=== PATIENT | male | born 1995 | race Two or more races ===

== ENCOUNTER 2017-05-14 10:14 | Emergency (ER) | payer SELFPAY ==
[~2017-05-14] VITALS: Ht 180.3 cm; Wt 68.0 kg
[2017-05-14 10:37] VITALS: BP 151/90
[2017-05-14] MEDS ORDERED: Lidocaine 1% 10mg/ml/EPI 0.01mg/ml 50ml INJ ONE (10:45)
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
[2017-05-14] MEDS ORDERED: Hydrogen Peroxide 473ml Bottle TOPIC ONE (10:57)
--- NOTE | 2017-05-14 11:34 | Diagnostic Imaging Report ---
Indication: Headache. Head trauma Technique: Contiguous 5 mm thick transaxial imaging of the head obtained in a Siemens Sensation [address] scanner. Soft tissue and bone windows generated. Total Dose length Product (DLP): [address] Dose Index Volume (CTDIvol): 70.38 mGy Comparison: none Findings: The size and configuration of the cortical sulci, basal cisterns, and ventricles are within normal limits for age. There is no mass effect, midline shift, or edema identified. There is no evidence of acute hemorrhage or abnormal intra-axial or extra-axial fluid collections. There is soft tissue swelling in the supraorbital region of the scalp. Impression: No mass effect, edema or acute bleed. Soft tissue contusion The CT scanner at [facility] is accredited by the [employer] and the scans are performed using dose optimization techniques as appropriate to a performed exam including Automatic Exposure control.
[2017-05-14 11:38] VITALS: BP 132/84
[2017-05-14 11:39] VITALS: BP 151/90
--- NOTE | 2017-05-15 09:19 | Diagnostic Imaging Report ---
Indication: pain Findings: 3 views of the right hand were obtained. Normal bony mineralization and alignment are demonstrated. No acute fractures, erosions, or periosteal reaction are seen. Soft tissues are unremarkable. Impression: Negative examination of the right hand.
== END 2017-05-14 11:42 ==
LOC: EMR 10:36
DX: S61.511A Laceration without foreign body of right wrist, initial encounter (principal); S00.511A Abrasion of lip, initial encounter; S00.83XA Contusion of other part of head, initial encounter; Y08.09XA Assault by strike by other specified type of sport equipment, initial encounter; Y92.89 Other specified places as the place of occurrence of the external cause; R51 Headache
CPT/HCPCS: 70450

== ENCOUNTER 2017-05-18 08:45 | Emergency (ER) | payer SELFPAY ==
[~2017-05-18] VITALS: Ht 180.3 cm; Wt 70.3 kg
[2017-05-18 09:00] VITALS: BP 133/86
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
[2017-05-18] MEDS ORDERED: BACITRACIN15 GM TOPIC (09:07)
[2017-05-18 09:12] VITALS: BP 133/86
[2017-05-18] MEDS ORDERED: Bacitracin Oint UD TOPIC ONE (09:15)
== END 2017-05-18 09:15 | disposition home or self-care (01) ==
LOC: EMR 09:10
DX: S59.911D Unspecified injury of right forearm, subsequent encounter (principal); X58.XXXD Exposure to other specified factors, subsequent encounter
CPT/HCPCS: 99282

== ENCOUNTER 2017-05-21 09:49 | Emergency (ER) | payer MEDICAID ==
[~2017-05-21] VITALS: Ht 180.3 cm; Wt 70.3 kg
[~2017-05-21 09:49] MED LIST: BACITRACIN15 GM TOPIC
[2017-05-21 09:55] VITALS: BP 130/82
[2017-05-21 10:18] VITALS: BP 130/82
--- NOTE | 2017-05-21 11:40 | Emergency Room Report ---
History of Present Illness General Chief Complaint: Wound Recheck/Suture Removal Source: Patient Present Illness HPI 21-year-old male presents for suture removal. Had sutures placed in his right wrist about one week ago. Is here to have the sutures removed. Patient states has healed well and is intact. Sutures in place. Denies any pain. Denies any discharge. No other aggravating or relieving factors. Denies any other associated symptoms Allergies: Coded Allergies: No Known Allergies (Unverified , 05/14/17) Patient History Past Medical History: none Past Surgical History: none Pertinent Family History: none Social History: Denies: alcohol use, drug use, smoking Immunizations: UTD Reviewed Nursing Documentation: PMH: Agreed, PSxH: Agreed Nursing Documentation-PMH Past Medical History: No Stated History Review of Systems All Other Systems: negative except mentioned in HPI Physical Exam Vital Signs Date Time Temp Pulse Resp B/P Pulse Ox O2 Delivery O2 Flow Rate FiO2 05/21/17 09:55 97.5 93 16 130/82 98 Room Air Sp02 EP Interpretation: reviewed, normal General Appearance: no apparent distress, alert, GCS 15, non-toxic Head: normocephalic ENT: normal ENT inspection Neck: normal inspection Respiratory: normal inspection Cardiovascular #1: normal inspection Gastrointestinal: normal inspection Rectal: deferred Genitourinary: no CVA tenderness Musculoskeletal: normal inspection Neurologic: alert, oriented x3, responsive, motor strength/tone normal, sensory intact, speech normal Psychiatric: normal inspection Skin: other - suture line C/D/I. wound approximated. no induration/erythema Lymphatic: normal inspection Medical Decision Making Diagnostic Impression: Primary Impression: Encounter for removal of sutures ER Course Patient presents to the emergency department today for suture removal. patient' s wound appears well-healed, and sutures are ready to be removed today. Using sterile technique the sutures were removed patient tolerated procedure well without any difficulty. Patient was given device in how to care for the wound patient is advised followup with his private care doctor in 2-3 days and return to emergency room for any worsening conditions as needed Last Vital Signs Date Time Temp Pulse Resp B/P Pulse Ox O2 Delivery O2 Flow Rate FiO2 05/21/17 10:18 97.5 93 16 130/82 98 Room Air Status: improved Disposition: HOME, SELF-CARE Condition: Stable Referrals: NOT CHOSEN IPA/MD,REFERRING (PCP) Patient Instructions: Suture Removal, Care After KOMARLYAKOTA,SIERRA M.D. May 21, 2017 11:40
== END 2017-05-21 10:40 | disposition home or self-care (01) ==
LOC: EMR 10:35
DX: Z48.02 Encounter for removal of sutures (principal)
CPT/HCPCS: 99281